=== PATIENT | male | born 1985 | race Caucasian/White ===

== ENCOUNTER 2022-07-13 10:35 | Emergency (ER) | payer MEDICAID ==
[~2022-07-13] VITALS: Ht 195.6 cm; Wt 86.4 kg
[2022-07-13 10:47] VITALS: BP 113/65
--- NOTE | 2022-07-13 11:16 | NUR ---
Pt in [facility], Pt fell yesterday and went to catch himself with his L wrist. Pt c/o 07/22 shooting pain w/ movement. Pt educated to POC. Pt in agreement. Pending MD orders, eval and treatment.
== END 2022-07-13 14:09 | disposition home or self-care (01) ==
LOC: ER 10:35
DX: S52.592A Other fractures of lower end of left radius, initial encounter for closed fracture (principal); W18.39XA Other fall on same level, initial encounter; Y93.89 Activity, other specified; Y92.89 Other specified places as the place of occurrence of the external cause; Y99.8 Other external cause status
CPT/HCPCS: 29125; 73110; 99284; A4565; A6449